=== PATIENT | female | born 1985 | race Asian ===

== ENCOUNTER 2023-01-13 17:19 | Emergency (ER) | payer OTHER ==
[~2023-01-13] VITALS: Ht 162.6 cm; Wt 81.6 kg
== END 2023-01-13 20:51 | disposition home or self-care (01) ==
LOC: ED 17:25
DX: S16.1XXA Strain of muscle, fascia and tendon at neck level, initial encounter (principal); S13.4XXA Sprain of ligaments of cervical spine, initial encounter; V89.2XXA Person injured in unspecified motor-vehicle accident, traffic, initial encounter
CPT/HCPCS: 81002; 81025; 96372; 99283; J1885; J2360